=== PATIENT | male | born 1995 | race Caucasian/White ===

== ENCOUNTER 2016-07-04 17:42 | Emergency (ER) | payer BC ==
[~2016-07-04] VITALS: Ht 180.3 cm; Wt 97.2 kg
[~2016-07-04 17:42] MED LIST: ALBUAER9 INH; CLIN1LOT TOP; EPP3/2 IM; FLVHFA110 INH; TZRCR5 TOP
[2016-07-04 17:47] VITALS: BP 156/95; PULSE 104; TEMP 37.2; O2SAT 96; Ht 180.3 cm; Wt 97.2 kg
[2016-07-04] MEDS ORDERED: AMX500 PO (18:01)
--- NOTE | 2016-07-04 18:20 | EMERGENCY ROOM VISIT NOTE ---
ED Visit Note First contact with patient: 17:53 Resident Physician Supervision Note: I was present with Dr. Brewer during the history and exam. I discussed the case with the resident and agree with the findings and plan as documented in the note. Documented By: Jose D Mclain
[2016-07-04] MEDS ORDERED: XYLOCAINE 1%/SOD BICARB 20 ML VIAL INFIL ONE (18:30)
--- NOTE | 2016-07-04 21:01 | EMERGENCY ROOM VISIT NOTE ---
History First contact with patient: 17:53 Chief Complaint: INFECTION Stated Complaint: INFECTION IN EAR LOBE Nursing Triage Summary: PT C/O INFECTION ON HIS EAR LOBE. SEEN AT [facility] ON SUNDAY AND WAS DIAGNOSED WITH AN ABSCESS WHICH WAS DRAINED AND PT WAS PLACED ON ABX, SYMPTOMS WORSENING. History of Present Illness The patient is a 20 year old male who presents to the Emergency Room with complaints of right ear pain. About 2 years ago patient began having swelling in both of his earlobes. He has had each ear lobe drained before and was placed on amoxicillin once and cephalexin the other time. This is the first recurence of swelling he has had since having the ears drained before. He has noticed some increased swelling on the right ear lobe about 3 weeks ago, but on started to notice it was getting infected. He had a sore throat , fatigue, mild pain with palpation, redness, and swelling. It continued to get larger and went Sunday to [facility] where they drianed the right ear lobe and started him on amoxicillin. Since he had it drained, it has refilled with fluid and continued to grow. Yesterday it had grown noticeably larger, and now it is tender around the right ear. He also has a cough currently but attributes it to seasonal allergies for which he takes Zyrtec. He denies any fevers, chills, shortness of breath, abdominal pain, chest pain, headache, visions changes, difficulties hearing, fluid leakage from the ear itself, dizziness, lightheadedness, sinus tenderness. Review of Systems See HPI for pertinent positives and negatives. A total of ten systems were reviewed and were otherwise negative. Past Medical/Surgical History Seasonal Allergies, Essential Tremor Social History Smoking Status: Never Smoker Smokeless Tobacco Use: No Alcohol Use: occasionally (7-8 drinks per day on weekends) Drug Use: none Occupation Status: [employer] student Current/Historical Medications Scheduled Amoxicillin (Amoxicillin), 500 MG PO BID Epinephrine (Epipen), 0.3 MG IM UD Scheduled PRN Albuterol Sulfate (Proventil Hfa), 2 PUFFS INH Q4 PRN for SOB/Wheezing Allergies Coded Allergies: Banana (Unverified Allergy, Unknown, SWELLING, 12/14/15) NUTS (Unverified Allergy, Unknown, SWELLING, 12/14/15) Watermelon (Unverified Allergy, Unknown, SWELLING, 12/14/15) Uncoded Allergies: MELON (Allergy, Unknown, SWELLING, 12/14/15) Physical Exam Vital Signs Date Time Temp Pulse Resp B/P Pulse Ox O2 Delivery O2 Flow Rate FiO2 07/04/16 17:47 37.2 104 18 156/95 96 Room Air Physical Exam GENERAL: Awake, alert, well-appearing, in no distress HENT: Normocephalic, atraumatic. 1cm abscess located posterior to right ear lob. Appears mildly erythematous. Nontender to palpation. No visible fluid drainage or pus. Firm but compressible. EYES: Normal conjunctiva. Sclera non-icteric. NECK: Supple. Trachea midline. RESPIRATORY: Clear to auscultation. CARDIAC: Regular rate, normal rhythm. Extremities warm and well perfused. ABDOMEN: Soft, non-distended. No tenderness to palpation. No rebound or guarding. No masses. RECTAL: Deferred. MUSCULOSKELETAL: Chest examination reveals no tenderness. LOWER EXTREMITIES: Calves are equal size bilaterally and non-tender. No edema. No discoloration. NEURO: Normal sensorium. No sensory or motor deficits noted. SKIN: No rash or jaundice noted. Medical Decision & Procedures Medical Decision Patient came in with a 1 week history of right ear lobe swelling and pain. This appears to have been a chronic issue that was previously treated with I&D with antibiotic treatment. The patient was seen on Sunday for this complication and was treated with needle drainage and antibiotic treatment with Amoxicillin. It appears that the drainage was not effective and the ear lobe has returned to the size it was prior to drainage. We decided to perform and I&D with a 11 blade needle after numbing with lidocaine and sterilizing the area with Betadine and Alcohol. A 1cm incision was made and bloody pus was evacuated from the lesion. Forceps were used to try and break up any loculations, and afterwards sterile saline was used to clean the wound. Gauze was applied to the wound with instructions to keep the wound covered for the next 24 hours and continue the Amoxicillin prescribed from urgent care. Impression Primary Impression: Infection of right ear lobe Departure Information Dispostion Home / Self-Care Condition GOOD Referrals No Doctor, Assigned (PCP) Patient Instructions [facility]
== END 2016-07-04 20:20 | disposition home or self-care (01) ==
LOC: C.EDB 17:44 → C.EDD 20:20
DX: H60.391 Other infective otitis externa, right ear (principal); H60.01 Abscess of right external ear; J02.9 Acute pharyngitis, unspecified; R53.83 Other fatigue; G25.0 Essential tremor